=== PATIENT | male | born 1995 | race African-American/Black ===

== ENCOUNTER 2017-11-13 00:09 | Emergency (ER) | payer SELFPAY ==
[~2017-11-13] VITALS: Ht 167.6 cm; Wt 65.9 kg
[2017-11-13] MEDS ORDERED: HALOPERIDOL 5 MG TABLET PO ONE (01:15)
[2017-11-13 02:59] VITALS: BP 128/88
== END 2017-11-13 03:28 | disposition home or self-care (01) ==
LOC: EMS 00:11
DX: F20.9 Schizophrenia, unspecified (principal); F17.210 Nicotine dependence, cigarettes, uncomplicated; F12.10 Cannabis abuse, uncomplicated; F15.10 Other stimulant abuse, uncomplicated
CPT/HCPCS: 99285; 99406